=== PATIENT | male | born 1970 | race Caucasian/White ===

== ENCOUNTER 2021-03-16 08:40 | Emergency (ER) | payer MEDICARE ==
[~2021-03-16 08:40] MED LIST: AZITHROMYCIN250 MG PO; DIAZEPAM 5MG TAB5 MG PO; HCTZ25 MG PO; HYDROCODON-ACE1 EAC2 PO; MEDROL 4MG DOSEP4 MG PO; VENTOLIN (2.5 MG/3 M INH
[2021-03-16 09:28] LABS: BASOPHIL 1.5 % (0-2); EOSINOPHIL 2.3 % (0-5); HCT 41.5 % (42.0-52.0); LYMPHOCYTE 27.5 % (15-48); MCH 30.5 pg (25.0-31.0); MCHC 33.7 g/dL (32.0-36.0); MCV 90.4 fL (78.0-100.0); MONOCYTE 12.8 % (0-12); MPV 9.5 fL (6.0-9.5); NEUTROPHIL 55.7 % (41-80); NRBC 0; PLT 267 K/uL (150-400); RBC 4.59 M/uL (4.70-6.00); RDW 12.9 % (11.5-14.0); WBC 9.1 K/uL (4.0-10.5)
[2021-03-16 09:29] LABS: BILIRUBIN NEGATIVE (NEGATIVE); BLOOD NEGATIVE Ery/uL (NEGATIVE); CLARITY CLEAR (CLEAR); COLOR YELLOW (YELLOW); GLUCOSE (U) NORMAL (NORMAL); LEUKOCYTES NEGATIVE Leu/uL (NEGATIVE); NITRITE NEGATIVE (NEGATIVE); PROTEIN NEGATIVE (NEGATIVE); SPECIFIC GRAVITY >=1.030 (1.001-1.030); UROBILINOGEN 0.2 mg/dL (0.2-1.0)
[2021-03-16 09:32] LABS: ECSTASY (MDMA) NEGATIVE (NEGATIVE); MARIJUANA (THC) NEGATIVE (NEGATIVE); METHADONE NEGATIVE (NEGATIVE); OPIATES NEGATIVE (NEGATIVE)
[2021-03-16 09:33] LABS: AMPHETAMINES NEGATIVE (NEGATIVE); BARBITURATES NEGATIVE (NEGATIVE); OXYCODONE NEGATIVE (NEGATIVE)
[2021-03-16 09:43] LABS: ALBUMIN 3.7 g/dL (3.4-5.0); ALKALINE PHOSHATASE 67 U/L (46-116); ALT 21 U/L (16-63); AST 18 U/L (15-37); BILIRUBIN - TOTAL 0.6 mg/dL (0.2-1.0); BUN 15 mg/dL (7-18); BUN/CREAT RATIO (CALC) 21.7 RATIO; CHLORIDE 108 mmol/L (98-107); CO2 (BICARBONATE) 29 mmol/L (21-32); CPK 265 U/L (39-308); CREATININE 0.69 mg/dL (0.67-1.17); GLOBULIN (CALCULATION) 3.1 g/dL; GLUCOSE 97 mg/dL (74-106); POTASSIUM 4.4 mmol/L (3.5-5.1); TOTAL PROTEIN 6.8 g/dL (6.4-8.2)
== END 2021-03-17 10:00 | disposition other institution (70) ==
LOC: FER 08:40
PROVIDERS: Emergency Medicine
DX: F13.251 Sedative, hypnotic or anxiolytic dependence with sedative, hypnotic or anxiolytic-induced psychotic disorder with hallucinations (principal); F19.251 Other psychoactive substance dependence with psychoactive substance-induced psychotic disorder with hallucinations; J44.9 Chronic obstructive pulmonary disease, unspecified; F17.200 Nicotine dependence, unspecified, uncomplicated; Z20.822 Contact with and (suspected) exposure to COVID-19
CPT/HCPCS: 36415; 80053; 80305; 81003; 82550; 85025; 99285; G0480; U0002

== ENCOUNTER 2021-05-15 23:50 | Emergency (ER) | payer MEDICARE ==
[2021-05-16 01:19] LABS: BASOPHIL 1.3 % (0-2); EOSINOPHIL 5.1 % (0-5); HCT 40.5 % (42.0-52.0); HGB 13.6 g/dl (13.2-18.0); LYMPHOCYTE 27.1 % (15-48); MCH 30.6 pg (25.0-31.0); MCHC 33.6 g/dL (32.0-36.0); MCV 91.2 fL (78.0-100.0); MONOCYTE 9.9 % (0-12); MPV 9.8 fL (6.0-9.5); NEUTROPHIL 56.3 % (41-80); NRBC 0; PLT 280 K/uL (150-400); RBC 4.44 M/uL (4.70-6.00); RDW 12.6 % (11.5-14.0); WBC 10.8 K/uL (4.0-10.5)
[2021-05-16 01:20] LABS: BILIRUBIN NEGATIVE (NEGATIVE); BLOOD NEGATIVE Ery/uL (NEGATIVE); CLARITY CLEAR (CLEAR); COLOR YELLOW (YELLOW); GLUCOSE (U) NORMAL (NORMAL); LEUKOCYTES NEGATIVE Leu/uL (NEGATIVE); NITRITE NEGATIVE (NEGATIVE); PROTEIN NEGATIVE (NEGATIVE); SPECIFIC GRAVITY >=1.030 (1.001-1.030); UROBILINOGEN 0.2 mg/dL (0.2-1.0); pH 5.5 (5.0-9.0)
[2021-05-16 01:24] LABS: AMPHETAMINES POSITIVE (NEGATIVE); BARBITURATES NEGATIVE (NEGATIVE); ECSTASY (MDMA) POSITIVE (NEGATIVE); MARIJUANA (THC) NEGATIVE (NEGATIVE); METHADONE NEGATIVE (NEGATIVE); OPIATES NEGATIVE (NEGATIVE); OXYCODONE NEGATIVE (NEGATIVE)
[2021-05-16 01:37] LABS: ALBUMIN 3.2 g/dL (3.4-5.0); BILIRUBIN - TOTAL 0.2 mg/dL (0.2-1.0); BUN/CREAT RATIO (CALC) 15.8 RATIO; CREATININE 0.76 mg/dL (0.67-1.17); POTASSIUM 4.2 mmol/L (3.5-5.1); TOTAL PROTEIN 6.2 g/dL (6.4-8.2)
== END 2021-05-16 01:47 | disposition home or self-care (01) ==
LOC: FER 23:50
PROVIDERS: Emergency Medicine
DX: F15.129 Other stimulant abuse with intoxication, unspecified (principal); F15.10 Other stimulant abuse, uncomplicated; J44.9 Chronic obstructive pulmonary disease, unspecified; Z86.711 Personal history of pulmonary embolism; F17.200 Nicotine dependence, unspecified, uncomplicated
CPT/HCPCS: 36415; 71045; 80053; 80305; 81003; 85025; 94640; 94664; 99284; J2060; J2930

== ENCOUNTER 2021-06-24 06:46 | Emergency (ER) | payer MEDICARE ==
[2021-06-24 07:49] LABS: BASOPHIL 0.9 % (0-2); HCT 43.3 % (42.0-52.0); HGB 14.2 g/dl (13.2-18.0); LYMPHOCYTE 14.2 % (15-48); MCH 30.7 pg (25.0-31.0); MCHC 32.8 g/dL (32.0-36.0); MCV 93.5 fL (78.0-100.0); MONOCYTE 8.9 % (0-12); MPV 10.5 fL (6.0-9.5); NEUTROPHIL 73.6 % (41-80); NRBC 0; PLT 332 K/uL (150-400); RBC 4.63 M/uL (4.70-6.00); RDW 13.2 % (11.5-14.0); WBC 14.4 K/uL (4.0-10.5)
[2021-06-24 08:02] LABS: LACTIC ACID 0.9 mmol/L (0.4-1.9)
[2021-06-24 08:11] LABS: ALBUMIN 3.9 g/dL (3.4-5.0); BILIRUBIN - TOTAL 0.6 mg/dL (0.2-1.0); BUN/CREAT RATIO (CALC) 17.4 RATIO; CREATININE 0.69 mg/dL (0.67-1.17); GLOBULIN (CALCULATION) 3.1 g/dL
[2021-06-24 08:23] LABS: PRO-BNP 70 pg/mL (<125)
[2021-06-24 09:34] LABS: AMPHETAMINES POSITIVE (NEGATIVE); BARBITURATES NEGATIVE (NEGATIVE); ECSTASY (MDMA) POSITIVE (NEGATIVE); MARIJUANA (THC) NEGATIVE (NEGATIVE); METHADONE NEGATIVE (NEGATIVE); OPIATES NEGATIVE (NEGATIVE)
[2021-06-24 09:35] LABS: OXYCODONE NEGATIVE (NEGATIVE)
[2021-06-24] MEDS ORDERED: PREDNISONE 20MG20 MG PO (17:10)
== END 2021-06-24 17:25 | disposition home or self-care (01) ==
LOC: FER 06:46
PROVIDERS: Internal Medicine
DX: J44.1 Chronic obstructive pulmonary disease with (acute) exacerbation (principal); F19.10 Other psychoactive substance abuse, uncomplicated; F17.200 Nicotine dependence, unspecified, uncomplicated; F32.9 Major depressive disorder, single episode, unspecified; F41.9 Anxiety disorder, unspecified; Z79.899 Other long term (current) drug therapy
CPT/HCPCS: 36415; 36600; 71045; 80053; 80305; 82803; 83605; 83880; 84145; 84484; 85025; 94664; 96372; G0480; J1630; J2930; J7030

== ENCOUNTER 2022-03-08 14:40 | Inpatient (IN) | payer MEDICARE ==
[~2022-03-08] VITALS: Ht 172.7 cm; Wt 59.1 kg
[~2022-03-08 14:40] MED LIST changes: +PREDNISONE 20MG20 MG PO
[2022-03-08 15:19] LABS: BASOPHIL 0.2 % (0-2); EOSINOPHIL 0 % (0-5); HGB 15.8 g/dl (13.2-18.0); MCH 29.6 pg (25.0-31.0); MCHC 32.9 g/dL (32.0-36.0); MCV 90.1 fL (78.0-100.0); MONOCYTE 6.8 % (0-12); MPV 10.7 fL (6.0-9.5); NEUTROPHIL 81.7 % (41-80); NRBC 0; PLT 282 K/uL (150-400); RBC 5.33 M/uL (4.70-6.00); RDW 12.2 % (11.5-14.0); WBC 8.9 K/uL (4.0-10.5)
[2022-03-08 15:23] LABS: INR 1.01 (0.9-1.2); PROTHROMBIN TIME 12.7 SECONDS (11.8-13.4); PTT 27.8 SECONDS (24.4-34.7)
[2022-03-08 15:25] LABS: D-DIMER 0.64 ug/mLFEU (0.00-0.41)
[2022-03-08 15:35] LABS: ALBUMIN 3.3 g/dL (3.4-5.0); BILIRUBIN - TOTAL 0.3 mg/dL (0.2-1.0); BUN/CREAT RATIO (CALC) 21.5 RATIO; CREATININE 0.65 mg/dL (0.67-1.17); GLOBULIN (CALCULATION) 4.1 g/dL; POTASSIUM 4.8 mmol/L (3.5-5.1); TOTAL PROTEIN 7.4 g/dL (6.4-8.2)
[2022-03-08 15:43] LABS: LACTIC ACID 1.5 mmol/L (0.4-1.9)
[2022-03-08 16:11] LABS: CORONAVIRUS 2019 SARS-COV-2 NEGATIVE (NEGATIVE); INFLUENZA A NAA NEGATIVE (NEGATIVE)
[2022-03-08 17:31] LABS: BILIRUBIN NEGATIVE (NEGATIVE); BLOOD NEGATIVE Ery/uL (NEGATIVE); CLARITY CLEAR (CLEAR); COLOR YELLOW (YELLOW); GLUCOSE (U) NORMAL (NORMAL); LEUKOCYTES NEGATIVE Leu/uL (NEGATIVE); NITRITE NEGATIVE (NEGATIVE); PROTEIN NEGATIVE (NEGATIVE); UROBILINOGEN 0.2 mg/dL (0.2-1.0)
[2022-03-08 21:46] LABS: AMPHETAMINES POSITIVE (NEGATIVE); BARBITURATES NEGATIVE (NEGATIVE); ECSTASY (MDMA) POSITIVE (NEGATIVE); MARIJUANA (THC) NEGATIVE (NEGATIVE); METHADONE NEGATIVE (NEGATIVE); OPIATES NEGATIVE (NEGATIVE); OXYCODONE NEGATIVE (NEGATIVE)
[2022-03-09 06:15] LABS: BASOPHIL 0.1 % (0-2); EOSINOPHIL 0 % (0-5); HCT 43.4 % (42.0-52.0); HGB 14.3 g/dl (13.2-18.0); LYMPHOCYTE 8.5 % (15-48); MCH 30.3 pg (25.0-31.0); MCHC 32.9 g/dL (32.0-36.0); MCV 91.9 fL (78.0-100.0); MONOCYTE 7.1 % (0-12); MPV 10.8 fL (6.0-9.5); NRBC 0; PLT 259 K/uL (150-400); RBC 4.72 M/uL (4.70-6.00); RDW 12.3 % (11.5-14.0); WBC 10.5 K/uL (4.0-10.5)
[2022-03-09 07:05] LABS: C-REACTIVE PROTEIN 5.7 mg/dL (<=0.90); CREATININE 0.69 mg/dL (0.67-1.17); POTASSIUM 4.3 mmol/L (3.5-5.1)
--- NOTE | 2022-03-10 06:29 | NUR ---
03/09/22 @ 2217 - WENT INTO PATIENTS ROOM TO ADMINISTER PAIN MEDICATION THAT THE PATIENT REQUESTED STATING THAT HIS BACK PAIN WAS A 9 OUT OF 10 AND FOUND THE PATIENT ASLEEP. I ATTEMPTED TO WAKE THE PATIENT BUT WAS UNABLE TO GET HIM AWAKE ENOUGH TO ANSWER MY ORIENTATION QUESTIONS. HE WOULD AWAKEN BRIEFLY AND IMMEDIATELY FALL BACK TO SLEEP. I DID NOT ADMINISTER THE PAIN MEDICATION OR THE SCHEDULED ATIVAN AND MADE SOO AWARE.
--- NOTE | 2022-03-10 12:03 | NUR ---
ATTEMPTED TO INTERVIEW PT ON 03/09/22 BUT HE APPEARED VERY SLEEPY AND TOLD ME THAT HE "JUST WANTED TO REST." WAS ABLE TO SPEAK WITH HIM ON 03/10/22. HE STATED THAT HE RESIDES WITH HIS SPOUSE. HE IS NORMALLY INDEPENDENT AT HOME. HE DOES NOT USE ANY OXYGEN AT HOME. DISCUSSED HIS DRUG USE. PT WAS NOT WILLING TO DISCUSS HIS USE OF DRUGS. HE ADVISED ME THAT HE KNEW HOW TO QUIT THAT "YOU JUST STOP". ADVISED PT THAT THERE ARE SEVERAL INPATIENT AND OUTPATIENT PROGRAMS AVAILABLE TO HIM. PT DECLINED STATING THAT HE DID NOT WANT OR NEED HELP. ADVISED DR. SANCHEZ OF THE ABOVE INFORMATION.
[2022-03-11 07:17] LABS: BASOPHIL 0.1 % (0-2); EOSINOPHIL 0 % (0-5); HCT 43.8 % (42.0-52.0); HGB 13.8 g/dl (13.2-18.0); LYMPHOCYTE 10.3 % (15-48); MCH 29.7 pg (25.0-31.0); MCHC 31.5 g/dL (32.0-36.0); MCV 94.4 fL (78.0-100.0); MONOCYTE 5.2 % (0-12); MPV 10.9 fL (6.0-9.5); NEUTROPHIL 83.8 % (41-80); NRBC 0; PLT 319 K/uL (150-400); RBC 4.64 M/uL (4.70-6.00); RDW 12.8 % (11.5-14.0)
[2022-03-11 07:19] LABS: WBC 10.7 K/uL (4.0-10.5)
[2022-03-11 08:10] LABS: BUN/CREAT RATIO (CALC) 37.7 RATIO; CREATININE 0.69 mg/dL (0.67-1.17); MAGNESIUM 1.9 mg/dL (1.8-2.4); POTASSIUM 5.1 mmol/L (3.5-5.1)
--- NOTE | 2022-03-13 10:29 | NUR ---
INFORMED BY JATINDER THAT PT WILL REQUIRE HOME O2. PT REQUESTED O2 FROM [facility]. ADVISED PT THAT DR. SANCHEZ WAS RECOMMENDING HH. PT STATED THAT HIS ANXIETY WAS "OUT OF THE ROOF" AND HE NEEDED SOMETHING FOR PAIN AND HE HAD TO GO TO THE BATHROOM. HE STATED THAT HE DIDN'T NEED HH THAT HE WAS GOING TO THE HOME OF HIS PARENTS. PT CONTINUED TO BE AGITATED AND WOULD NOT GIVE ME A CHOICE FOR HH. ADVISED DR. SANCHEZ AND JATINDER, NURSE OF ABOVE INFORMATION.
[2022-03-13] MEDS ORDERED: SINGULAIR10 MG PO (10:36)
[2022-03-13] MEDS ORDERED: MEDROL 4MG DOSEP4 MG PO (10:36)
[2022-03-13] MEDS ORDERED: MUCINEX 600MG600 MG PO (10:36)
[2022-03-13] MEDS ORDERED: PANTOPRAZOLE SO40 MG PO (10:36)
[2022-03-13] MEDS ORDERED: DUONEB 2.5-0.5M1 AMP NEB (10:36)
[2022-03-13] MEDS ORDERED: DOXYCYCLINE MO100 M1 PO (10:36)
[2022-03-13] MEDS ORDERED: NEBULIZER UNIT NEB (10:39)
[2022-03-13] MEDS ORDERED: VENTOLIN HFA IN18 GM INH (10:54)
== END 2022-03-13 12:45 | disposition home health service (06) | DRG 871 ==
LOC: FER 14:40 → FMS 17:42
PROVIDERS: Emergency Medicine; Internal Medicine; Nurse Practitioner; Nurse Practitioner Acute Care; ADMIT Internal Medicine
DX: A41.02 Sepsis due to Methicillin resistant Staphylococcus aureus (principal); J96.02 Acute respiratory failure with hypercapnia; J96.01 Acute respiratory failure with hypoxia; G93.41 Metabolic encephalopathy; J18.0 Bronchopneumonia, unspecified organism; J15.29 Pneumonia due to other staphylococcus; J44.1 Chronic obstructive pulmonary disease with (acute) exacerbation; J44.0 Chronic obstructive pulmonary disease with (acute) lower respiratory infection; J90 Pleural effusion, not elsewhere classified; J98.11 Atelectasis; R65.20 Severe sepsis without septic shock; F15.10 Other stimulant abuse, uncomplicated; F32.A Depression, unspecified; R91.1 Solitary pulmonary nodule; I10 Essential (primary) hypertension; F17.210 Nicotine dependence, cigarettes, uncomplicated; F41.1 Generalized anxiety disorder; Z20.822 Contact with and (suspected) exposure to COVID-19; Z86.718 Personal history of other venous thrombosis and embolism; Z86.711 Personal history of pulmonary embolism; Z98.890 Other specified postprocedural states; Z83.3 Family history of diabetes mellitus; Z79.01 Long term (current) use of anticoagulants
CPT/HCPCS: 36415; 36600; 71045; 71250; 71275; 80048; 80053; 80202; 80305; 81003; 82728; 82803; 83605; 83735; 83880; 84145; 84484; 85025; 85379; 85610; 85730; 86140; 87040; 87070; 87077; 87186; 87205; 93005; 94010; 94640; 94664; 94668; 94760; 94762; J0692; J1650; J1790; J1885; J2405; J2543; J2920; J2930; J3360; J3370; J3475; J7030; J7050; Q9967; U0002